=== PATIENT | male | born 1965 | race Caucasian/White ===

== ENCOUNTER 2018-11-12 13:17 | Observation (INO) ==
--- NOTE | 2018-11-12 13:23 | Emergency Department Note ---
Disposition Clinical Impression: DKA (diabetic ketoacidoses), Dehydration Disposition: Admitted As Inpatient Condition: Good Referrals: Amy Mancia, SERVICE ADVISOR [Primary Care Provider] - Forms: ED Satisfaction Letter Time of Disposition: 14:30 Nausea/Vomiting/Diarrhea HPI - General Chief complaint: ED Nausea/Vomiting/Diarrhea Stated complaint: n/v that started this am Time Seen by Provider: 11/12/18 13:23 Source: patient Mode of arrival: ambulatory Limitations: no limitations Nursing Notes Reviewed: Yes Vital Signs Reviewed: Yes - History of Present Illness HPI Narrative: 52-year-old male presents today stating that he has not felt well for the last couple of days. He said today with vomiting. He states his sugars been elevated but he does not know how high. He does use an insulin pump but has not been checking it recently. He is a type I diabetic. He has not had any recent infection. He is very thirsty. He has been vomiting. Has not had any diarrhea. He states his muscles are cramping. Pt Subjective Complaint: nausea, vomiting - Related Data Home Medications Medication Instructions Recorded Confirmed Insulin ASPART [NovoLOG] 13 unit SQ QID 12/19/14 11/12/18 Previous Rx's Medication Instructions Recorded Albuterol Sulfate [Albuterol 2 puff IH Q4HR #1 hfa.aer.ad 08/10/16 Inhaler] Allergies Allergy/AdvReac Type Severity Reaction Status Date / Time No Known Allergies Allergy Verified 08/10/16 11:10 Review of Systems: All other systems are negative except as noted/marked Chart generated with voice recognition software Nursing notes reviewed Old records reviewed Past Medical History - Past Medical History Attestation: Yes The following information was validated with the patient. Source: patient, old records reviewed, nursing notes reviewed Medical history: Reports: diabetes, hypertension Surgical history: Reports: appendectomy Psychiatric history: Reports: no psych history - Social History Smoking Status: Former smoker Smokeless Tobacco Status: No Alcohol use: Reports: none Drug use: Reports: none Physical Exam General: NAD, VSS Head: normocephalic, atraumatic Eyes: EOMI, PERRLA mouth: Dry mucous membranes Neck: NO CLA, Supple Chest wall: normal rise, no crepitus, no deformity noted Lungs: moving air well, no distress Heart: RRR Abd: soft, nontender, BS normal : deferred MSK: strength equal in all four extremities Ext: moves all four extremities, no obvious deformities Skin: cap refill normal, warm, dry neuro : CN2-12 grossly intact, A&Ox3 Psych: normal affect, not anxious - General Limitations: no limitations General appearance: alert Course Vital Signs Temperature 98.7 F 11/12/18 13:18 Pulse Rate 92 11/12/18 13:18 Respiratory Rate 18 11/12/18 13:18 Blood Pressure 126/80 11/12/18 13:18 O2 Sat by Pulse Oximetry 96 11/12/18 13:18 Temperature 98.7 F 11/12/18 13:18 Pulse Rate 85 11/12/18 15:04 Respiratory Rate 18 11/12/18 15:04 Blood Pressure 128/61 11/12/18 15:04 O2 Sat by Pulse Oximetry 95 11/12/18 15:04 Oxygen Delivery Oxygen Delivery Room Air Nausea/Vomiting/Diarrhea - MDM Narrative Medical decision making narrative: 52-year-old male who presents today in DKA. His pH is 7.1 which is pretty low and concerning. His electrolytes are abnormal. I been giving him IV fluids and then started an insulin drip. I ordered every 4 hours BMPs so that we can check the status of his glucose and his potassium. He may need to have potassium replacement initiated eventually however he is hyperkalemic at this time probably secondary to dehydration Patient is feeling better after the nausea medicine. I recommended that he be admitted into the hospital. I spoke with Dr. Nguyen the hospitalist who agreed to accept the patient. - Medical Records Medical records reviewed: Yes I reviewed the patient's medical records. - Lab Data Lab results reviewed: Yes I reviewed the patient's lab results. Result diagrams: 11/12/18 13:52 11/12/18 13:52 Lab Results 11/12/18 11/12/18 11/12/18 Range/Units 13:42 13:52 13:52 WBC 12.4 H (4.3-11.1) K/mcL RBC 5.32 (4.19-5.50) M/mcL Hgb 15.5 (12.9-16.9) g/dL Hct 46.7 (37.5-50.1) % MCV 87.8 (83.0-100.0) fL MCH 29.1 (28.0-33.3) pg MCHC 33.2 (31.6-35.5) g/dL RDW 13.0 (11.5-14.5) % Plt Count 316 (140-400) K/mcL MPV 10.1 (9.4-12.4) fL Immature Gran % 0.7 (0-4) % Seg Neutrophils % 92.2 % Lymphocytes % 4.4 % Monocytes % 2.3 % Eosinophils % 0.0 % Basophils % 0.4 % Neutrophils # 11.4 H (1.6-8.9) K/mcL Lymphocytes # 0.6 (0.6-4.6) K/mcL Monocytes # 0.3 (0.0-1.3) K/mcL Eosinophils # 0.0 (0.0-0.6) K/mcL Basophils # 0.1 (0.0-0.2) K/mcL Sample Site ABG pH (7.32-7.45) pH Units ABG pCO2 (35-45) mmHg ABG pO2 (85-104) mmHg ABG HCO3 (21-27) mEq/L ABG Total CO2 (20-26) mEq/L ABG O2 Saturation (95-98) % ABG Base Excess (-2 to 3) mEq/L Scott Test O2 Delivery Device Sodium 133 L (136-145) mEq/L Potassium 5.2 H (3.5-5.1) mEq/L Chloride 95 L (98-107) mEq/L Carbon Dioxide 11 L (23-29) mEq/L BUN 29 H (6-20) mg/dL Creatinine 1.57 H (0.70-1.30) mg/dL Est GFR ( Amer) 57 L (> 60) Est GFR (Non-Af Amer) 47 L (> 60) BUN/Creatinine Ratio 18 (6-26) Glucose 390 H (70-105) mg/dL Calculated Osmolality 298 (280-300) Lactic Acid (0.5-2.2) mmol/L Calcium 9.3 (8.6-10.3) mg/dL Magnesium 2.1 (1.6-2.6) mg/dL Total Bilirubin 0.5 (0.3-1.0) mg/dL AST 12 L (13-39) Units/L ALT 20 (7-52) Units/L Alkaline Phosphatase 100 (34-104) Units/L Serum Total Protein 7.7 (6.4-8.9) g/dL Albumin 4.6 (3.5-5.7) g/dL Globulin 3.1 (2.4-3.5) g/dL Albumin/Globulin Ratio 1.5 (1.1-2.2) Beta-Hydroxybutyric Acd (0.02-0.27) mmol/L Urine Opiates Screen Negative (Lepkgm=698) ng/mL Ur Buprenorphine Scrn Negative (Cutoff=5) ng/mL Ur Oxycodone Screen Negative (Cutoff= 100) ng/mL Ur Barbiturates Screen Negative (Mzrmsy=173) ng/mL Ur Phencyclidine Scrn Negative (Cutoff=25) ng/mL Ur Amphetamines Screen Negative (Lharjo=1707) ng/mL U Benzodiazepines Scrn Negative (Yfewfs=444) ng/mL Urine Cocaine Screen Negative (Cutoff= 300) ng/mL U Marijuana (THC) Screen Negative (Cutoff = 50) ng/mL Ur Drug Screen Interp See Below Person Notif of Crit 11/12/18 11/12/18 11/12/18 Range/Units 13:52 13:52 13:53 WBC (4.3-11.1) K/mcL RBC (4.19-5.50) M/mcL Hgb (12.9-16.9) g/dL Hct (37.5-50.1) % MCV (83.0-100.0) fL MCH (28.0-33.3) pg MCHC (31.6-35.5) g/dL RDW (11.5-14.5) % Plt Count (140-400) K/mcL MPV (9.4-12.4) fL Immature Gran % (0-4) % Seg Neutrophils % % Lymphocytes % % Monocytes % % Eosinophils % % Basophils % % Neutrophils # (1.6-8.9) K/mcL Lymphocytes # (0.6-4.6) K/mcL Monocytes # (0.0-1.3) K/mcL Eosinophils # (0.0-0.6) K/mcL Basophils # (0.0-0.2) K/mcL Sample Site R Radial ABG pH 7.18 L* (7.32-7.45) pH Units ABG pCO2 23 L (35-45) mmHg ABG pO2 107 H (85-104) mmHg ABG HCO3 8 L (21-27) mEq/L ABG Total CO2 9 L (20-26) mEq/L ABG O2 Saturation 97 (95-98) % ABG Base Excess -18 L (-2 to 3) mEq/L Scott Test Positive O2 Delivery Device Room Air Sodium (136-145) mEq/L Potassium (3.5-5.1) mEq/L Chloride (98-107) mEq/L Carbon Dioxide (23-29) mEq/L BUN (6-20) mg/dL Creatinine (0.70-1.30) mg/dL Est GFR ( Amer) (> 60) Est GFR (Non-Af Amer) (> 60) BUN/Creatinine Ratio (6-26) Glucose (70-105) mg/dL Calculated Osmolality (280-300) Lactic Acid 1.3 (0.5-2.2) mmol/L Calcium (8.6-10.3) mg/dL Magnesium (1.6-2.6) mg/dL Total Bilirubin (0.3-1.0) mg/dL AST (13-39) Units/L ALT (7-52) Units/L Alkaline Phosphatase (34-104) Units/L Serum Total Protein (6.4-8.9) g/dL Albumin (3.5-5.7) g/dL Globulin (2.4-3.5) g/dL Albumin/Globulin Ratio (1.1-2.2) Beta-Hydroxybutyric Acd > 2.00 H (0.02-0.27) mmol/L Urine Opiates Screen (Cysjhv=286) ng/mL Ur Buprenorphine Scrn (Cutoff=5) ng/mL Ur Oxycodone Screen (Cutoff= 100) ng/mL Ur Barbiturates Screen (Gudqxy=741) ng/mL Ur Phencyclidine Scrn (Cutoff=25) ng/mL Ur Amphetamines Screen (Psvliy=9117) ng/mL U Benzodiazepines Scrn (Wtejtx=825) ng/mL Urine Cocaine Screen (Cutoff= 300) ng/mL U Marijuana (THC) Screen (Cutoff = 50) ng/mL Ur Drug Screen Interp Person Notif of Arias Oneill - Radiology Data Radiology results reviewed: Yes I reviewed the patient's radiology results. - EKG Data EKG attestation: Yes I reviewed and interpreted this EKG. EKG results narrative: EKG interpreted by myself as a sinus rhythm with a rate of 78 a QTC of [address] elevation
[2018-11-12] MEDS ORDERED: Insulin Regular, Human 100 UNIT/ML IV ONE (13:33)
[2018-11-12] MEDS ORDERED: *HR* Dextrose 50 % in Water (Syg) 50 ML SYRINGE IVP PRN ×2 (13:33→18:29)
[2018-11-12] MEDS ORDERED: Ondansetron 4 MG/2 ML VIAL IVP ONE (13:35)
[2018-11-12 13:57] LABS: ABG Base Excess -18 mEq/L (-2 to 3); ABG HCO3 8 mEq/L (21-27); ABG Oxygen Saturation 97 % (95-98); ABG PCO2 23 mmHg (35-45); ABG PH 7.18 pH Units (7.32-7.45); ABG PO2 107 mmHg (85-104); ABG TCO2 9 mEq/L (20-26)
[2018-11-12 14:00] LABS: Amphetamine Screen,Urine Negative ng/mL (Cutoff=1000); Barbiturate Screen,Urine Negative ng/mL (Cutoff=200); Benzodiazepines Screen,Urine Negative ng/mL (Cutoff=200); Cannabinoid Screen,Urine Negative ng/mL (Cutoff = 50); Cocaine Screen,Urine Negative ng/mL (Cutoff= 300); Opiate Screen,Urine Negative ng/mL (Cutoff=300); Phencyclidine Screen,Urine Negative ng/mL (Cutoff=25)
[2018-11-12] MEDS ORDERED: Insulin Human Regular 100 UNIT in 0.9 % Sodium Chloride 100 ML IVC SCH (14:00)
[2018-11-12 14:02] LABS: Basophils # 0.1 K/mcL (0.0-0.2); Basophils % 0.4 %; Hematocrit 46.7 % (37.5-50.1); Hemoglobin 15.5 g/dL (12.9-16.9); Immature Granulocytes % 0.7 % (0-4); Lymphocytes % 4.4 %; Mean Corpuscular HGB Conc 33.2 g/dL (31.6-35.5); Mean Corpuscular Hemoglobin 29.1 pg (28.0-33.3); Mean Corpuscular Volume 87.8 fL (83.0-100.0); Mean Platelet Volume 10.1 fL (9.4-12.4); Monocytes # 0.3 K/mcL (0.0-1.3); Monocytes % 2.3 %; Neutrophils # 11.4 K/mcL (1.6-8.9); Platelet Count 316 K/mcL (140-400); Red Blood Count 5.32 M/mcL (4.19-5.50); Segmented Neutrophils % 92.2 %; White Blood Count 12.4 K/mcL (4.3-11.1)
[2018-11-12] MEDS: 0.9 % Sodium Chloride 1,000 ML IVC SCH ×3 (14:02→19:38)
[2018-11-12 14:04] LABS: Lymphocytes # 0.6 K/mcL (0.6-4.6)
[2018-11-12 14:15] LABS: Albumin 4.6 g/dL (3.5-5.7); Albumin/Globulin Ratio 1.5 (1.1-2.2); Bilirubin,Total 0.5 mg/dL (0.3-1.0); Calcium 9.3 mg/dL (8.6-10.3); Globulin 3.1 g/dL (2.4-3.5); Magnesium 2.1 mg/dL (1.6-2.6); Potassium 5.2 mEq/L (3.5-5.1); Total Protein 7.7 g/dL (6.4-8.9)
[2018-11-12] MEDS ORDERED: Naloxone 0.4 MG/ML INJ IVP PRN (14:34)
[2018-11-12] MEDS ORDERED: MOM Conc 10 ML UD.LIQ PO PRN (14:34)
[2018-11-12] MEDS ORDERED: Ondansetron 4 MG/2 ML VIAL IVP PRN (14:34)
[2018-11-12 17:42] LABS: Estimated Average Glucose 324 mg/dl
[2018-11-12] MEDS ORDERED: Dextrose Gel 15 GM/37.5 ML TUBE PO PRN ×2 (18:29)
[2018-11-12] MEDS ORDERED: D5% in Water 1,000 ML IVC PRN (18:29)
[2018-11-12] MEDS: Insulin LISPRO 300 UNITS/3 ML VIAL SQ SCH (19:37)
[2018-11-12] MEDS: Ibuprofen 400 MG TABLET PO PRN (20:09)
[2018-11-12] MEDS: Mag Hydrox/Al Hydrox/Simeth 30 ML UDC PO PRN (20:09)
[2018-11-12] MEDS ORDERED: Insulin DETEMIR 100 UNIT/ML per UNIT SQ ONE (21:00)
[2018-11-12] MEDS: Acetaminophen 325 MG TABLET PO PRN (22:09)
[2018-11-13 00:25] LABS: Bilirubin,Urine Negative (Negative); Blood,Urine Trace-intact (Negative); Clarity,Urine Clear (Clear); Color,Urine Yellow (Yellow); Glucose,Urine (UA) 500 mg/dL (Normal); Ketones,Urine >=160 mg/dL (Negative); Leukocyte Esterase,Urine Negative (Negative); Nitrite,Urine Negative (Negative); Protein,Urine Negative (Neg-Trace); Specific Gravity,Urine >= 1.030 (1.010-1.025); Urobilinogen,Urine Normal (Normal)
[2018-11-13] MEDS: 0.9 % Sodium Chloride 1,000 ML IVC SCH ×3 (03:24→20:43)
[2018-11-13] MEDS ORDERED: *HR* Promethazine 25 MG/ML VIAL IVP PRN (04:33)
[2018-11-13] MEDS ORDERED: Insulin LISPRO 300 UNITS/3 ML VIAL SQ ONE (04:35)
[2018-11-13] MEDS ORDERED: Ondansetron 4 MG/2 ML VIAL IVP PRN (04:38)
[2018-11-13] MEDS: Mag Hydrox/Al Hydrox/Simeth 30 ML UDC PO PRN (04:44)
[2018-11-13] MEDS: Acetaminophen 325 MG TABLET PO PRN ×2 (04:45→11:59)
[2018-11-13 05:08] LABS: Basophils % 0.4 %; Eosinophils % 0.4 %; Hematocrit 39.6 % (37.5-50.1); Hemoglobin 13.5 g/dL (12.9-16.9); Immature Granulocytes % 0.6 % (0-4); Lymphocytes # 1.6 K/mcL (0.6-4.6); Lymphocytes % 16.1 %; Mean Corpuscular HGB Conc 34.1 g/dL (31.6-35.5); Mean Corpuscular Hemoglobin 29.7 pg (28.0-33.3); Mean Platelet Volume 9.8 fL (9.4-12.4); Monocytes # 0.6 K/mcL (0.0-1.3); Monocytes % 6.5 %; Neutrophils # 7.4 K/mcL (1.6-8.9); Platelet Count 255 K/mcL (140-400); Red Blood Count 4.55 M/mcL (4.19-5.50); Red Cell Distribution Width 13.2 % (11.5-14.5); White Blood Count 9.7 K/mcL (4.3-11.1)
[2018-11-13 05:26] LABS: Phosphorous 2.5 mg/dL (2.7-4.5)
[2018-11-13 05:27] LABS: BUN/Creatinine Ratio 17 (6-26); Blood Urea Nitrogen 19 mg/dL (6-20); Carbon Dioxide 12 mEq/L (23-29); Chloride 102 mEq/L (98-107); Glucose 275 mg/dL (70-105); Osmolality,Calculated 284 (280-300); Potassium 4.5 mEq/L (3.5-5.1); Sodium 131 mEq/L (136-145); eGFR For African Americans > 60 (> 60); eGFR For Non-African Americans > 60 (> 60)
[2018-11-13] MEDS: Insulin LISPRO 300 UNITS/3 ML VIAL SQ SCH ×4 (08:19→20:42)
[2018-11-13] MEDS ORDERED: Insulin DETEMIR 100 UNIT/ML X5UNITS SQ SCH (09:00)
--- NOTE | 2018-11-13 09:42 | Internal Med History&Physical ---
Date of Encounter: 11/13/18 Time of Encounter: 09:15 Assessment and Plan (1) DKA (diabetic ketoacidoses) Current visit: Yes Status: Acute He has been started on IV fluids. Insulin drip was started in emergency room but has been discontinued and he is now on Accu-Cheks with SSI. He will also be given basal insulin with Levemir. Hemoglobin A1c significantly elevated at 12.9%. Qualifiers: Diabetes mellitus type: other specified (including NEENA) Diabetes mellitus complication detail: without coma Qualified Code(s): E13.10 - Other specified diabetes mellitus with ketoacidosis without coma (2) VERONICA (acute kidney injury) Current visit: Yes Status: Acute Likely secondary to dehydration from vomiting and DKA. Monitor renal indices. (3) Hypophosphatemia Current visit: Yes Status: Acute Phosphorus level slightly low at 2.5. Neutra-Phos will be ordered. (4) Leg cramps Current visit: Yes Status: Acute Iron studies will be ordered. Continue gabapentin. Internal Medicine - H&P: HPI Chief complaint: Vomiting, weakness, DKA Admitted From: Emergency Dept Plans for Post Hospital Care: Home History of present illness: Mr. Beard is a 52 year old male who came to emergency room stating he had not felt well for the previous 24 hours. On the morning of admission he began having episodes of nonbloody emesis. There was no significant abdominal pain or diarrhea. He came to emergency room and was evaluated and was found to have DKA. Blood sugar was 390 MG/DL. He was [facility] to [facility] floor for ongoing care needs. He was diagnosed with DM 2 approximately 2006. He reports insulin pump was placed approximately 2017. 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 He reports blood sugar checks at home typically show results of 250-300 mg/DL. He denies thyroid disease or hyperlipidemia. Past Med Surg Social Fam HX - Past Medical History Medical history: diabetes, hypertension Psychiatric history: no psych history - Past Surgical History Surgical History: appendectomy - Social History Smoking Status: Former smoker Smokeless Tobacco Status: No Alcohol use: none Drug use: none - Family History Maternal Adopted: No Living Status: Still Living Hx Family Cardiac Disorders: Yes (hypertension) Hx Family Respiratory Disorders: Yes (asthma) Hx Family Cancer: No Hx Family Endocrine Disorder: Yes (diabetes) Hx Family Neuromuscular Disorders: No Hx Family Neurologic Disorders: No Hx Family HEENT Disorders: No Hx Family Autoimmune Disorders: No Paternal Adopted: No Living Status: Still Living Hx Family Cardiac Disorders: Yes (hypertension) Hx Family Respiratory Disorders: Yes (asthma) Hx Family Cancer: No Hx Family GI Disorders: No Hx Family Endocrine Disorder: Yes (diabetes) Hx Family Neuromuscular Disorders: No Hx Family Neurologic Disorders: No Hx Family HEENT Disorders: No Hx Family Autoimmune Disorders: No Internal Medicine - H&P: Meds Insulin ASPART [NovoLOG] 13 unit SQ QID 12/19/14 [History] Albuterol Sulfate [Albuterol Inhaler] 2 puff IH Q4HR #1 hfa.aer.ad 08/10/16 [Rx] Allergy/AdvReac Type Severity Reaction Status Date / Time No Known Allergies Allergy Verified 08/10/16 11:10 All Systems PM: A 10-system review of systems was performed and is negative for pertinent findings except as documented above in the HPI. Review of systems: Gen.: His weight has minimally changed from 96.162 kg November 2014 to present weight of 95.254 kg. Cardiovascular: He has history of hypertension but does not take medication at this time. He denies PR heart failure angina DVT or pulmonary embolus. Respiratory: He smoked from age [age] up to 1 pack per day. He has not had PFTs and does not wear home O2 and has not been tested for sleep apnea. GI: He denies disorders of his liver gallbladder or exocrine pancreas : He denies hematuria dysuria or disorders of his kidney bladder or prostate Neurologic: He denies large distribution strokes or seizures. He had 4 syncopal episodes in 2014 without any recurrence since. Endocrine: As per history of present illness Hematology/oncology: He denies blood disorders cancers or anemia Psychiatric: He denies anxiety depression or other mental health issues Musk skeletal: He denies arthritis gout or osteoporosis. 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 - Constitutional Vitals: Temp Pulse Resp BP Pulse Ox 98.2 F 67 17 100/53 98 11/13/18 06:45 11/13/18 06:45 11/13/18 06:45 11/13/18 06:45 11/13/18 06:45 Exam: Gen.: He is a well-developed well-nourished male resting comfortably in bed who appears in no acute distress HEENT: Head is atraumatic and normocephalic. Eyes: EOMI. There is no scleral icterus. Mouth: Mucosa is moist. Neck: Supple and nontender. There is no thyromegaly or adenopathy noted. Heart: Regular without murmurs gallops or ectopics Lungs: No wheezes or crackles are heard. Abdomen: Bowel sounds are present. The abdomen is soft and nontender. No masses or guarding are noted. Extremities: There is no cyanosis edema or clubbing noted. Dorsalis pedis and posterior tibial pulses are 1-2 over 2 bilaterally. Neurologic: Mental status: He is talkative and a good historian. Cranial n erves: Smile is symmetric. Forehead wrinkles bilaterally. Tongue protrudes midline. EOMI. Motor: There is no pronator drift. Cerebellar: Finger to nose is intact bilaterally. Skin: Warm and dry Internal Med - H&P Results - Labs CBC & Chem 7: 11/13/18 05:03 11/13/18 05:03 Labs: Short CBC 11/12/18 11/13/18 Range/Units 13:52 05:03 WBC 12.4 H 9.7 (4.3-11.1) K/mcL Hgb 15.5 13.5 D (12.9-16.9) g/dL Hct 46.7 39.6 (37.5-50.1) % Plt Count 316 255 (140-400) K/mcL Neutrophils # 11.4 H 7.4 (1.6-8.9) K/mcL BMP 11/12/18 11/13/18 13:52 05:03 Sodium 133 L 131 L Potassium 5.2 H 4.5 Chloride 95 L 102 Carbon Dioxide 11 L 12 L BUN 29 H 19 Creatinine 1.57 H 1.12 Glucose 390 H 275 H Calcium 9.3 8.0 L Liver Function 11/12/18 Range/Units 13:52 Total Bilirubin 0.5 (0.3-1.0) mg/dL AST 12 L (13-39) Units/L ALT 20 (7-52) Units/L Alkaline Phosphatase 100 (34-104) Units/L Albumin 4.6 (3.5-5.7) g/dL Urine 11/12/18 Range/Units 00:00 Urine Color Yellow (Yellow) Urine Clarity Clear (Clear) Urine pH 5.0 (5.0-8.0) pH Units Ur Specific [place] >= 1.030 H (1.010-1.025) Urine Protein Negative (Neg-Trace) mg/dL Urine Glucose (UA) 500 H (Normal) mg/dL - ABG Interpretation ABG results: 11/12/18 13:53 ABG pH 7.18 L* ABG pCO2 23 L ABG pO2 107 H ABG HCO3 8 L ABG Total CO2 9 L ABG O2 Saturation 97 ABG Base Excess -18 L
[2018-11-13] MEDS ORDERED: Albuterol 2.5 MG/3 ML NEBULIZER IH PRN (10:04)
[2018-11-13] MEDS ORDERED: Insulin DETEMIR 100 UNIT/ML X5UNITS SQ ONE (11:06)
[2018-11-13] MEDS: Gabapentin 300 MG CAPSULE PO SCH ×3 (11:58→20:41)
[2018-11-13 12:07] LABS: BUN/Creatinine Ratio 17 (6-26); Blood Urea Nitrogen 18 mg/dL (6-20); Calcium 7.8 mg/dL (8.6-10.3); Carbon Dioxide 15 mEq/L (23-29); Chloride 104 mEq/L (98-107); Glucose 211 mg/dL (70-105); Osmolality,Calculated 280 (280-300); Potassium 4.4 mEq/L (3.5-5.1); Sodium 131 mEq/L (136-145); eGFR For African Americans > 60 (> 60); eGFR For Non-African Americans > 60 (> 60)
[2018-11-13] MEDS: Ibuprofen 400 MG TABLET PO PRN (16:18)
[2018-11-13] MEDS: Insulin DETEMIR 100 UNIT/ML X5UNITS SQ SCH (20:41)
[2018-11-13] MEDS: traMADol 50 MG TABLET PO PRN (21:12)
[2018-11-14] MEDS: traMADol 50 MG TABLET PO PRN ×2 (04:53→11:05)
[2018-11-14] MEDS: 0.9 % Sodium Chloride 1,000 ML IVC SCH (04:54)
[2018-11-14 06:49] VITALS: BP 145/75
[2018-11-14 06:58] LABS: Phosphorous 2.3 mg/dL (2.7-4.5)
[2018-11-14 07:00] LABS: Alanine Aminotransferase 13 Units/L (7-52); Albumin 3.4 g/dL (3.5-5.7); Albumin/Globulin Ratio 1.6 (1.1-2.2); Alkaline Phosphatase 75 Units/L (34-104); Aspartate Amino Transferase 9 Units/L (13-39); BUN/Creatinine Ratio 18 (6-26); Bilirubin,Total 0.4 mg/dL (0.3-1.0); Blood Urea Nitrogen 16 mg/dL (6-20); Carbon Dioxide 21 mEq/L (23-29); Chloride 103 mEq/L (98-107); Globulin 2.1 g/dL (2.4-3.5); Glucose 241 mg/dL (70-105); Osmolality,Calculated 287 (280-300); Potassium 4.1 mEq/L (3.5-5.1); Sodium 134 mEq/L (136-145); Total Protein 5.5 g/dL (6.4-8.9); eGFR For African Americans > 60 (> 60); eGFR For Non-African Americans > 60 (> 60)
[2018-11-14 07:06] LABS: Basophils # 0.1 K/mcL (0.0-0.2); Basophils % 0.9 %; Eosinophils # 0.1 K/mcL (0.0-0.6); Eosinophils % 1.9 %; Hematocrit 36.4 % (37.5-50.1); Hemoglobin 12.5 g/dL (12.9-16.9); Immature Granulocytes % 0.6 % (0-4); Lymphocytes # 1.8 K/mcL (0.6-4.6); Lymphocytes % 27.7 %; Mean Corpuscular HGB Conc 34.3 g/dL (31.6-35.5); Mean Corpuscular Hemoglobin 29.3 pg (28.0-33.3); Mean Corpuscular Volume 85.2 fL (83.0-100.0); Mean Platelet Volume 10.5 fL (9.4-12.4); Monocytes # 0.5 K/mcL (0.0-1.3); Monocytes % 8.4 %; Neutrophils # 3.9 K/mcL (1.6-8.9); Platelet Count 230 K/mcL (140-400); Red Blood Count 4.27 M/mcL (4.19-5.50); Red Cell Distribution Width 13.1 % (11.5-14.5); Segmented Neutrophils % 60.5 %; White Blood Count 6.4 K/mcL (4.3-11.1)
[2018-11-14] MEDS: Gabapentin 300 MG CAPSULE PO SCH (09:01)
[2018-11-14] MEDS: Acetaminophen 325 MG TABLET PO PRN (09:01)
[2018-11-14] MEDS: Insulin DETEMIR 100 UNIT/ML X5UNITS SQ SCH (09:02)
[2018-11-14] MEDS: Insulin LISPRO 300 UNITS/3 ML VIAL SQ SCH ×2 (09:02→11:48)
[2018-11-14 10:43] LABS: Folate 11.7 ng/mL (3.0-16.0)
--- NOTE | 2018-11-14 10:57 | Electrocardiograph Report ---
[place] [id number] Test Date: 2018-11-12 Pat Name: Marck Beard Department: EDP-12 Room: [facility] Gender: M [employer] Supplies Sales Representative: : 1965 Requested By: Julianna Oneill Order Number: [id number] Reading MD: Matt Bertrand Measurements Intervals [place] Rate: 78 P: 23 FL: 164 QRS: -53 QRSD: 92 T: 67 QT: 395 QTc: 450 Interpretive Statements Sinus rhythm Left anterior fascicular block Electronically Signed On 11-14-2018 10:55:22 EDT by Matt Bertrand
--- NOTE | 2018-11-14 11:19 | Discharge Summary ---
Date of Encounter: 11/14/18 Time of Encounter: 11:10 - Discharge Diagnosis (1) DKA (diabetic ketoacidoses) Priority: Primary Status: Acute Qualifiers: Diabetes mellitus type: other specified (including NEENA) Diabetes mellitus complication detail: without coma Qualified Code(s): E13.10 - Other specified diabetes mellitus with ketoacidosis without coma (2) VERONICA (acute kidney injury) Priority: Secondary Status: Resolved (3) Hypophosphatemia Priority: Secondary Status: Acute (4) Leg cramps Priority: Secondary Status: Acute Hospital course: Mr. Beard is a 52 year old male who came to emergency room stating he had not felt well for the previous 24 hours. On the morning of admission he began having episodes of nonbloody emesis. There was no significant abdominal pain or diarrhea. He came to emergency room and was evaluated and was found to have DKA. Blood sugar was 390 MG/DL. He was admitted to [facility] floor for ongoing care needs. Initial orders were written by emergency room physician. I saw him on November 13 and performed the history and physical. He was started on IV fluids. Insulin drip was started in emergency room but was discontinued after a few hours and he was placed on ac and hs Accu-Cheks with SSI. Because of insulin pump failure he was started on Levemir. He will be transitioned to Lantus at [facility] at a dose of 50 units daily. Hemoglobin A1c returned significantly elevated at 12.9%. He will follow with his financial aid manager to discuss replacement insulin pump. Azotemia resolved with BUN and creatinine decreasing to 16 and 0.90 respectively by day of discharge with estimated GFR> 60. Hemoglobin decreased to 12.5 by day of discharge. Anemia testing showed iron 114, transferrin saturation 48, transferrin 171, ferritin 156, B12 942, and folate 11.7. His PCP can monitor. On November 14 he felt improved and stable for discharge home. He will follow with his PCP Amy Mancia CNP within 1 week. - Time Spent with Patient Total time spent providing and/or coordinating discharge services: - Discharge Medications Prescriptions: New Insulin Glargine [Lantus] 50 unit SQ DAILY #3 vial Phos-NaK [Neutra-Phos] 1 each PO DAILY #7 powd.pack Continued Albuterol Sulfate [Proventil Inhaler] 2 puff IH Q4HR #1 hfa.aer.ad Discontinued Insulin ASPART [NovoLOG] 13 unit SQ QID Home Medications: Albuterol Sulfate [Proventil Inhaler] 2 puff IH Q4HR #1 hfa.aer.ad 08/10/16 [Rx] Insulin Glargine [Lantus] 50 unit SQ DAILY #3 vial 11/14/18 [Rx] Phos-NaK [Neutra-Phos] 1 each PO DAILY #7 powd.pack 11/14/18 [Rx] Allergies/Adverse Reactions: Allergy/AdvReac Type Severity Reaction Status Date / Time No Known Allergies Allergy Verified 08/10/16 11:10 Date of admission: 11/12/18 15:39 Primary care physician: Amy Mancia CNP - Constitutional Vitals: Temp Pulse Resp BP Pulse Ox 97.6 F 57 18 145/75 96 11/14/18 06:43 11/14/18 06:43 11/14/18 06:43 11/14/18 06:43 11/14/18 06:43 - Patient Status Disposition: Home, Self-Care Condition: Good - Discharge Instructions Follow Up With: Amy Mancia CNP [Primary Care Provider] - 1 week - Diet and Activity Activity: resume usual activities as tolerated Diet: diabetic diet
== END 2018-11-14 12:20 | disposition home or self-care (01) ==
LOC: INPPIK 13:17 → EMEROOPIK 13:17 → INPPIK 16:28
PROVIDERS: ADMIT Internal Medicine; ATTEND Internal Medicine